=== PATIENT | male | born 1985 | race Caucasian/White ===

== ENCOUNTER 2017-01-02 07:32 | Emergency (ER) | payer OTHER ==
[~2017-01-02 07:32] MED LIST: BENADRYL PO; LORCET 10/650 T1 TAB PO; NEURONTIN PO; TOPAMAX200 MG PO
== END 2017-01-02 13:00 | disposition home or self-care (01) ==
LOC: CED 07:32
DX: S33.5XXA Sprain of ligaments of lumbar spine, initial encounter (principal); Z79.899 Other long term (current) drug therapy; X58.XXXA Exposure to other specified factors, initial encounter; Y92.9 Unspecified place or not applicable
CPT/HCPCS: 99282